=== PATIENT | male | born 1970 | race Caucasian/White ===

== ENCOUNTER 2016-09-22 21:06 | Emergency (ER) | payer OTHER ==
[~2016-09-22] VITALS: Ht 185.4 cm; Wt 80.9 kg
[~2016-09-22 21:06] MED LIST: CLINDAMYCIN HC150 MG PO; DOXYCYCLINE HY100 M3 PO; Dulcolax PO; OXYCODONE; OXYCODONE10 MG; SEROQUEL100 MG; ZANAFLEX4 MG PO; oxyCODONE PO
[2016-09-22] MEDS ORDERED: PERCOCET 5/31 TABLET PO (22:26)
[2016-09-22] MEDS ORDERED: KEFLEX500 MG PO (22:26)
[2016-09-22 23:05] VITALS: BP 116/70
== END 2016-09-22 23:12 | disposition home or self-care (01) ==
LOC: EXP 21:06 → EME 21:06 → EXP 23:12
PROC: 2W3EX1Z Immobilization of Right Hand using Splint (ICD-10-PCS; principal; 2016-09-22)
DX: S61.431A Puncture wound without foreign body of right hand, initial encounter (principal); W45.0XXA Nail entering through skin, initial encounter; F17.200 Nicotine dependence, unspecified, uncomplicated
CPT/HCPCS: 99281; 99284; J0696